=== PATIENT | female | born 1975 | race Two or more races ===

== ENCOUNTER 2020-03-03 21:04 | Emergency (ER) | payer SELFPAY ==
[2020-03-03 21:49] LABS: ABSOLUTE EOSINOPHILS # (AUTO) 0.2 10^3/uL (0.0-0.6); ABSOLUTE LYMPHOCYTES (AUTO) 2.9 10^3/uL (0.5-4.7); ABSOLUTE MONOCYTES (AUTO) 0.8 10^3/uL (0.1-1.4); ABSOLUTE NEUT (AUTO) 3.5 10^3/uL (1.7-8.2); BASOPHILS % (AUTO) 0.5 % (0-2); EOSINOPHILS % (AUTO) 3.1 % (0-6); HEMATOCRIT 42.6 % (36.0-47.0); HEMOGLOBIN 14.7 g/dL (12.0-15.5); LYMPHOCYTES % (AUTO) 39.2 % (13-45); MEAN CORPUSCULAR HEMOGLOBIN 32.5 pg (27.0-33.4); MEAN CORPUSCULAR HGB CONC 34.5 g/dL (32.0-36.0); MEAN CORPUSCULAR VOLUME 94 fl (80-97); MONOCYTES % (AUTO) 11.1 % (3-13); PLATELET COUNT 144 10^3/uL (150-450); RED BLOOD COUNT 4.52 10^6/uL (3.72-5.28); RED CELL DISTRIBUTION WIDTH 13.3 % (11.5-14.0); SEGMENTED NEUTROPHILS % (AUTO) 46.1 % (42-78); TOTAL CELLS COUNTED % (AUTO) 100 %; WHITE BLOOD COUNT 7.5 10^3/uL (4.0-10.5)
--- NOTE | 2020-03-03 21:50 | EKG REPORT ---
SEVERITY:- OTHERWISE NORMAL ECG - SINUS TACHYCARDIA : Confirmed by: Yumiko Robb MD 03-Mar-2020 21:48:21
[2020-03-03 22:02] LABS: ALBUMIN 4.5 g/dL (3.5-5.0); ALKALINE PHOSPHATASE 59 U/L (38-126); ANION GAP 9 (5-19); ASPARTATE AMINO TRANSFERASE 48 U/L (14-36); BILIRUBIN,DIRECT 0.2 mg/dL (0.0-0.4); BILIRUBIN,TOTAL 0.2 mg/dL (0.2-1.3); BLOOD UREA NITROGEN 10 mg/dL (7-20); CALCIUM 9.1 mg/dL (8.4-10.2); CARBON DIOXIDE 24 mmol/L (22-30); CHLORIDE 104 mmol/L (98-107); CREATINE KINASE 44 U/L (30-135); GLUCOSE 176 mg/dL (75-110); POTASSIUM 3.8 mmol/L (3.6-5.0); TOTAL PROTEIN 7.5 g/dL (6.3-8.2)
[2020-03-03 22:14] LABS: CREATINE KINASE MB 0.24 ng/mL (<4.55); TROPONIN I < 0.012 ng/mL
--- NOTE | 2020-03-03 22:56 | ER Document Report ---
ED General - General Chief Complaint: Chest Pain Stated Complaint: CHEST PAIN, SHORTNESS OF BREATH, HEADACHE, FAINT Time Seen by Provider: 03/03/20 22:15 Primary Care Provider: ANA FELDMAN MD [ACTIVE STAFF] - Follow up as needed Notes: 44-year-old female presents the emergency department complaining of feeling g enerally ill for the past week to week and a half. Patient states that she had been ignoring her symptoms of shortness of breath and some pleuritic chest pain until it worsened on Sunday became associated with headache and some neck pain as well. Denies any confusion, denies any fevers but admits sweats and chills. Also complains of right-sided chest pain that radiates under her breast into her right axilla. States that it is worsened with deep breathing. Denies any difference with exertion. She does state that she feels very tired whenever she gets up and walks around but she is able to accomplish her activities of daily living. Patient initially thought her headache was a sinus headache so she has been taking her "sinus pills" but it has not been helping. Denies any sick contact and denies any travel. - Related Data Allergies/Adverse Reactions: [id number] Antimigraine Agents Allergy (Verified 03/04/20 01:30) Past Medical History - General Information source: Patient - Social History Smoking Status: Unknown if Ever Smoked Family History: None. denies: CAD Review of Systems - Review of Systems Constitutional: See HPI, Chills, Diaphoresis EENT: No symptoms reported Cardiovascular: See HPI, Chest pain, Dyspnea Respiratory: See HPI, Hurts to breathe, Short of breath. denies: Cough Gastrointestinal: No symptoms reported Musculoskeletal: See HPI, Neck pain Neurological/Psychological: See HPI, Headaches -: Yes All other systems reviewed and negative Physical Exam - Vital signs Vitals: Temp Resp BP Pulse Ox 98.9 F 20 154/94 H 98 03/03/20 22:04 03/03/20 22:04 03/03/20 22:04 03/03/20 22:04 - Notes Notes: GENERAL: Alert, interacts well. No acute distress. HEAD: Normocephalic, atraumatic EYES: Pupils equal, round and reactive to light, extraocular movements intact. ENT: Oral mucosa moist, tongue midline. NECK: Full range of motion, supple, trachea midline. No meningismus. Able to touch her chin to her chest without any pain. LUNGS: Clear to auscultation bilaterally, no wheezes, rales or rhonchi, no respiratory distress. HEART: Regular rate and rhythm, no murmurs, gallops, rubs. ABDOMEN: Soft, nontender, nondistended, bowel sounds present in all 4 quadrants. EXTREMITIES: Moves all 4 extremities spontaneously, no edema, radial and dorsalis pedis pulses 2/4 bilaterally. No cyanosis. NEUROLOGICAL: Alert and oriented x3, normal speech, no facial droop. PSYCH: Normal mood, normal affect. SKIN: Warm, Dry, normal turgor, no rashes or lesions noted. Course - Re-evaluation Re-evalutation: 03/04/20 01:56 CBC shows mild thrombocytopenia at 144, CMP shows a nonfasting elevated glucose at 176, slight bump in the AST and ALT, troponin is negative x2, flu swabs are negative, chest x-ray shows no acute process, EKG is nonischemic. Coronavirus testing has been sent. Patient is not hypoxic. There is no indication for admission at this time. - Vital Signs Vital signs: Temp Pulse Resp BP Pulse Ox 98.9 F 20 126/80 H 99 03/03/20 22:04 03/04/20 01:31 03/04/20 01:31 03/04/20 01:31 - Laboratory Result Diagrams: 03/03/20 21:15 03/03/20 21:15 Laboratory results interpreted by me: 03/03/20 03/03/20 21:15 21:15 Plt Count 144 L Sodium 136.8 L Glucose 176 H AST 48 H ALT 68 H - EKG Interpretation by Me Additional EKG results interpreted by me: 03/03/20 22:58 EKG shows sinus tachycardia at a rate of 103, normal axis, normal intervals, no ST segment elevations or depressions, there are isolated nonspecific T wave inversions in lead III per my interpretation. Discharge - Discharge Clinical Impression: Pleuritic chest pain Condition: Stable Disposition: HOME, SELF-CARE Additional Instructions: Today your chest x-ray did not show any signs of pneumonia. Your flu swabs were negative. I suspect your cough is coming from a viral infection. Your oxygen level is not so low that you need to be admitted. If simply walking across the room makes you feel like you are going to pass out or like you just walked up 2 flights of steps please return to the emergency department. Please let any healthcare personnel that you see know that you have been tested for coronavirus. This includes if you need to return to the emergency department. Please use nasal saline rinses such as a NetiPot or NeilMed Sinus Rinses. Please use nasal steroid such as Nasonex or Flonase 1 squirt per nostril twice a day to decrease inflammation and swelling. Given your history of hypertension I would avoid using [id number] decongestants such as Sudafed or Benadryl. If you have a lot of sinus pressure you may use Coricidin HBP according to the directions on the box. You were tested for coronavirus (COVID 19) but these results may take 7 days or more to come back. Please stay in your house until they are resulted back or until you have been completely symptom-free for at least 3 days. There was no evidence of heart attack on your blood work or your EKG today. Referrals: ANA FELDMAN MD [ACTIVE STAFF] - Follow up as needed
[2020-03-04 00:04] LABS: A TYPE INFLUENZA AG NEGATIVE (NEGATIVE); B INFLUENZA AG NEGATIVE (NEGATIVE)
--- NOTE | 2020-03-04 00:38 | RADIOLOGY REPORT (SQ) ---
EXAM DESCRIPTION: XR CHEST 1 VIEW COMPLETED DATE/TME: 03/03/2020 22:53 CLINICAL HISTORY: 44 years Female, SOB, chest pain COMPARISON: None. NUMBER OF VIEWS/TECHNIQUE: 1/AP FINDINGS: Adequate lung volume, clear parenchyma, normal cardiac silhouette, and intact bony thorax. IMPRESSION: No acute cardiopulmonary findings.
[2020-03-04] MEDS ORDERED: ACETAMINOPHEN 325 MG TABLET PO ONE (00:54)
[2020-03-04 03:07] VITALS: BP 128/72
== END 2020-03-04 03:14 | disposition home or self-care (01) ==
LOC: ER 21:04
DX: Z20.828 Contact with and (suspected) exposure to other viral communicable diseases (principal); R07.81 Pleurodynia; R06.02 Shortness of breath; R51 Headache; R55 Syncope and collapse
CPT/HCPCS: 36415; 71045; 80053; 82550; 82553; 84484; 85025; 87635; 87804; 93005; 93010; 99284

== ENCOUNTER 2020-08-09 02:41 | Emergency (ER) | payer SELFPAY ==
[2020-08-09] MEDS ORDERED: DIPH/PERTUSS(ACELL)/TETANUS VAC/PF 0.5 ML SYR (>=10YO) IM ONE (04:01)
[2020-08-09] MEDS ORDERED: ONDANSETRON HCL INJ/PF 4 MG/2 ML SDV IV ONE (04:02)
[2020-08-09] MEDS ORDERED: KETOROLAC TROMETHAMINE INJ/PF 30 MG/1 ML SDV IV ONE (04:02)
[2020-08-09] MEDS ORDERED: CLINDAMYCIN 600 MG/D5W RTU 600 MG/50 ML RTUPB IV ONE (04:06)
--- NOTE | 2020-08-09 04:10 | ER Document Report ---
ED General - HPI Onset/Duration: Gradual Quality of pain: Sharp Severity: Severe Pain Level: 5 Associated symptoms: Other - See HPI Exacerbated by: Other Relieved by: Other - See HPI see HPI - Related Data Home Medications: lisinopril <DERICK CERON IV - Last Filed: 08/09/20 04:13> <BRIANCORTNEY J - Last Filed: 08/09/20 10:19> - General Chief Complaint: Leg Pain Stated Complaint: LEG PAIN Time Seen by Provider: 08/09/20 03:42 - HPI Context: 44-year-old female presents complaining of a puncture wound to her right medial distal thigh that occurred approximately 3 days ago. Patient states that tonight she noticed that the pain is no longer localized to the area of the puncture wound that is radiating up her thigh as well as down her lower leg. Patient states her symptoms started around midnight tonight. Patient states she is also having chills and nausea secondary to the pain patient rates the pain as between a 4 and 5 of a 0-5 scale. Patient thinks that she incurred puncture wound while walking on a deck 3 days ago. Patient denies purulent discharge fro m the wound. Patient denies other injury. Patient states pain is exacerbated with movement and with touch. Patient denies alleviating factors. Patient states it has been more than 5 years since her last tetanus booster. (DERICK CERON IV) - Related Data Allergies/Adverse Reactions: [id number] Antimigraine Agents Allergy (Verified 03/04/20 01:30) Past Medical History - General Information source: Patient - Social History Smoking Status: Current Some Day Smoker Family History: None, Reviewed & Not Pertinent. denies: CAD - Past Medical History Cardiac Medical History: Reports: Hx Hypertension Past Surgical History: Reports: Hx Section <DERICK CERON IV - Last Filed: 08/09/20 04:13> Review of Systems - Review of Systems Constitutional: See HPI EENT: No symptoms reported Cardiovascular: No symptoms reported Respiratory: No symptoms reported Gastrointestinal: No symptoms reported Genitourinary: No symptoms reported Female Genitourinary: No symptoms reported Musculoskeletal: See HPI Skin: See HPI Hematologic/Lymphatic: No symptoms reported Neurological/Psychological: No symptoms reported -: Yes All other systems reviewed and negative <DERICK CERON IV - Last Filed: 08/09/20 04:13> Physical Exam <DERICK CERON IV - Last Filed: 08/09/20 04:13> - Vital signs Vitals: Temp Pulse Resp BP Pulse Ox 98.7 F 103 H 18 170/100 H 97 08/09/20 02:46 08/09/20 02:46 08/09/20 02:46 08/09/20 02:46 08/09/20 02:46 - Notes Notes: [Vital signs reviewed, Patient appears comfortable, Alert and oriented X 3, Normal stature.] HEAD [Atraumatic, Normocephalic.] EYES [Eyes are normal to inspection, No discharge from eyes, Extraocular muscles intact, Sclera are normal, Conjunctiva are normal.] NECK [Normal ROM, No jugular venous distention, No meningeal signs, no carotid bruit.] RESPIRATORY CHEST [Chest is nontender, Breath sounds normal, No respiratory distress.] CARDIOVASCULAR [RRR, No murmurs, Normal S1 S2, No rub, No gallop.] ABDOMEN [Abdomen is nontender, No pulsatile masses, No other masses, Bowel sounds normal, No distension, No peritoneal signs, No hernias.] BACK [There is no CVA Tenderness, There is no tenderness to palpation, Normal inspection.] UPPER EXTREMITY [Inspection normal, No cyanosis, No clubbing, No edema, 2+ radial pulses.] LOWER EXTREMITY Patient has a puncture wound present on the distal medial surface of her right calf there is approximately a 2 cm ring of erythema surrounding the area. There is no purulent discharge noted. The area is tender to palpation. There is no streaking, subcutaneous emphysema, edema or other erythema noted on the patient's lower extremity exam.] NEURO [No focal motor deficits, No focal sensory deficits, Speech normal.] SKIN see lower extremity exam] LYMPHATIC [No adenopathy in neck.] PSYCHIATRIC [Normal affect. ] (DERICK CERON IV) Course - Laboratory Result Diagrams: 08/09/20 04:52 08/09/20 04:52 <CORTNEY TORRES - Last Filed: 08/09/20 10:19> - Re-evaluation Re-evalutation: 08/09/20 10:15 Patient signed out to me for evaluation of patient once a CT scan was obtained CT scan of right lower leg medial to the left knee shows cellulitis and no abscess no foreign body no other invasive or necrotic tissue noted. (CORTNEY TORRES) - Vital Signs Vital signs: Temp Pulse Resp BP Pulse Ox 97.7 F 79 18 180/102 H 100 08/09/20 08:26 08/09/20 08:26 08/09/20 08:26 08/09/20 08:26 08/09/20 08:26 - Laboratory Laboratory results interpreted by me: 08/09/20 04:52 Sodium 136.0 L BUN 21 H Creatinine 0.48 L AST 77 H ALT 86 H Discharge <DERICK CERON IV - Last Filed: 08/09/20 04:13> <CORTNEY TORRES - Last Filed: 08/09/20 10:19> - Discharge Clinical Impression: Cellulitis of right lower leg Condition: Stable Disposition: HOME, SELF-CARE Additional Instructions: Cellulitis You have an infection of your skin and underlying soft tissues called cellulitis. This is due to bacteria, which can enter through any break in the skin, or even through an irritated hair follicle. Untreated, cellulitis will usually worsen. Antibiotics are required. Usually, warm packs or warm soaks, and elevation of the infected area are recommended. You should start getting better within 24 to 36 hours. Most infections respond quickly to the right medication. Follow-up care is important, however, to check for abscess (boil) formation, unsuspected foreign body, or resistant infection. If you develop fever, chills, or if the area of infection is becoming rapidly more swollen or painful, call the doctor at once. Prescriptions: Clindamycin HCl 300 mg PO TID #30 capsule Ibuprofen [Motrin 800 mg Tablet] 800 mg PO Q8H PRN #21 tablet PRN Reason: pain
[2020-08-09 04:59] LABS: ABSOLUTE BASOPHILS # (AUTO) 0.1 10^3/uL (0.0-0.2); ABSOLUTE EOSINOPHILS # (AUTO) 0.3 10^3/uL (0.0-0.6); ABSOLUTE NEUT (AUTO) 4.4 10^3/uL (1.7-8.2); BASOPHILS % (AUTO) 0.7 % (0-2); EOSINOPHILS % (AUTO) 3.5 % (0-6); HEMATOCRIT 44.1 % (36.0-47.0); MEAN CORPUSCULAR HEMOGLOBIN 32.2 pg (27.0-33.4); MEAN CORPUSCULAR HGB CONC 33.9 g/dL (32.0-36.0); MEAN CORPUSCULAR VOLUME 95 fl (80-97); MONOCYTES % (AUTO) 12.9 % (3-13); PLATELET COUNT 155 10^3/uL (150-450); RED BLOOD COUNT 4.64 10^6/uL (3.72-5.28); RED CELL DISTRIBUTION WIDTH 13.9 % (11.5-14.0); SEGMENTED NEUTROPHILS % (AUTO) 56.9 % (42-78); TOTAL CELLS COUNTED % (AUTO) 100 %; WHITE BLOOD COUNT 7.8 10^3/uL (4.0-10.5)
[2020-08-09 05:18] LABS: ALBUMIN 4.3 g/dL (3.5-5.0); ALKALINE PHOSPHATASE 71 U/L (38-126); ANION GAP 9 (5-19); ASPARTATE AMINO TRANSFERASE 77 U/L (14-36); BILIRUBIN,DIRECT 0.2 mg/dL (0.0-0.4); BILIRUBIN,TOTAL 0.6 mg/dL (0.2-1.3); BLOOD UREA NITROGEN 21 mg/dL (7-20); CALCIUM 9.3 mg/dL (8.4-10.2); CARBON DIOXIDE 25 mmol/L (22-30); CHLORIDE 102 mmol/L (98-107); GLUCOSE 103 mg/dL (75-110); POTASSIUM 4.5 mmol/L (3.6-5.0); TOTAL PROTEIN 7.1 g/dL (6.3-8.2)
--- NOTE | 2020-08-09 07:28 | RADIOLOGY REPORT (SQ) ---
CT right knee with contrast on 08/09/2020 at 6:20 AM CLINICAL INDICATION: Severe leg pain after puncture wound TECHNIQUE: Multiple axial images are obtained from the mid thigh to the mid tibia and fibula following the administration of IV contrast, 60 mL of contrast was administered intravenously. Sagittal and coronal reformatted images are also performed and reviewed. This exam was performed according to our departmental dose-optimization program, which includes automated exposure control, adjustment of the mA and/or kV according to patient size and/or use of iterative reconstruction technique. Total DLP is 197.17 mGy*cm. COMPARISON: None FINDINGS: There is a small joint effusion in the knee. Visualized right superficial femoral artery, popliteal artery and proximal trifurcation vessels are patent and unremarkable. There are no acute fracture lines. No CT changes of osteomyelitis are noted. There is no radiopaque foreign body. No fluid collection to suggest abscess is noted. No air is noted in the soft tissues to suggest necrotizing fasciitis. There is minimal subcutaneous stranding in the medial knee soft tissues that may represent minimal cellulitis, please correlate with physical exam. No other bony or soft tissue abnormality is noted. IMPRESSION: 1. Possible minimal cellulitis in the medial knee soft tissues, please correlate with physical exam. There is no evidence to suggest abscess, osteomyelitis or necrotizing fasciitis or radiopaque foreign body. 2. Trace joint effusion.
[2020-08-09 10:37] VITALS: BP 147/101
--- NOTE | 2020-08-09 15:57 | ER Document Report ---
Entered by TRACY MCCOY SCRIBE 08/09/20 1025 Acting as scribe for:CORTNEY TORRES MD Doctor's Note Notes: 08/09/20 10:16 Patient was signed over to me by Dr. Alex while CT report of right lower extremity was pending. On exam, patient has a puncture wound in her medial right lower leg to her knee joint. The skin is red and dry. The puncture wound is tender with palpation and there is not any drainage. CT report of lower extremity shows that there is no evidence to suggest a abscess, osteomyelitis, necrotizing faciitis, or foreign body. CT report shows possible minimal cellulitis in the medial right knees soft tissue. I personally performed the services described in the documentation, reviewed and edited the documentation which was dictated to the scribe in my presence, and it accurately records my words and actions.
== END 2020-08-09 10:37 | disposition home or self-care (01) ==
LOC: ER 02:41
DX: L03.115 Cellulitis of right lower limb (principal); S81.831A Puncture wound without foreign body, right lower leg, initial encounter; X58.XXXA Exposure to other specified factors, initial encounter; M25.461 Effusion, right knee; R68.83 Chills (without fever); R11.0 Nausea; F17.200 Nicotine dependence, unspecified, uncomplicated; I10 Essential (primary) hypertension; Z23 Encounter for immunization; Z88.8 Allergy status to other drugs, medicaments and biological substances
CPT/HCPCS: 99285; 90471; 96374; 96375; 36415; 87040; 85025; 80053; 73701; 90715; J1885; J2405